=== PATIENT | male | born 1985 | race African-American/Black ===

== ENCOUNTER 2023-04-17 23:09 | Emergency (ER) | payer MEDICAID, OTHER ==
[~2023-04-17] VITALS: Ht 188 cm; Wt 77.3 kg
[~2023-04-17 23:09] MED LIST: NOCURR
[2023-04-17 23:13] VITALS: BP 150/77
[2023-04-18] MEDS ORDERED: KETOROLAC TROMETHAMINE 30 MG/ML VIAL IM ONE (01:15)
[2023-04-18] MEDS ORDERED: KETOROLAC TROMETHAMINE 60 MG/2 ML VIAL IM ONE (01:15)
[2023-04-18] MEDS ORDERED: HYDROCODONE/ACETAMINOPHEN 5-325 MG TABLET PO ONE (01:30)
== END 2023-04-18 02:10 | disposition home or self-care (01) ==
LOC: EMS 23:09
DX: S92.002A Unspecified fracture of left calcaneus, initial encounter for closed fracture (principal); X58.XXXA Exposure to other specified factors, initial encounter; Y93.39 Activity, other involving climbing, rappelling and jumping off; Y92.89 Other specified places as the place of occurrence of the external cause; Y99.8 Other external cause status
CPT/HCPCS: 99284; 29515; 73610; 73630; 96372; J1885

== ENCOUNTER 2023-05-30 07:27 | Emergency (ER) | payer MEDICAID ==
[~2023-05-30] VITALS: Ht 190.5 cm; Wt 86.4 kg
[2023-05-30 08:39] VITALS: BP 153/84; PULSE 95; RESP 18; TEMP 98.1
== END 2023-05-30 08:54 ==
LOC: EMS 07:28
DX: S69.91XA Unspecified injury of right wrist, hand and finger(s), initial encounter (principal); V89.2XXA Person injured in unspecified motor-vehicle accident, traffic, initial encounter; Y93.89 Activity, other specified; Y92.89 Other specified places as the place of occurrence of the external cause; Y99.8 Other external cause status
CPT/HCPCS: 99283; Z7502